=== PATIENT | female | born 1940 | race Caucasian/White ===

== ENCOUNTER 2023-01-27 02:13 | Inpatient (IN) ==
[2023-01-27] MEDS ORDERED: ACETAMINOPHEN 1,000 MG/100 ML VIAL IV STA (02:36)
[2023-01-27] MEDS ORDERED: SODIUM CHLORIDE 0.9% 1000ML 1,000 ML IV SCH ×2 (02:45→15:03)
[2023-01-27 02:51] LABS: Basophils # (auto) 0.06 K/uL (0-0.2); Basophils % (auto) 0.9 %; Eosinophils # (auto) 0.15 K/uL (0-0.50); Eosinophils % (auto) 2.2 %; Hematocrit (blood only) 35.1 % (37.0-47.0); Hemoglobin 11.8 g/dl (12.0-16.0); Immature Granulocytes # (auto) 0.03 K/uL (0.01-0.20); Immature Granulocytes % (auto) 0.4 %; Lymphocytes # (auto) 2.45 K/uL (1.2-3.4); Lymphocytes % (auto) 36.4 %; Mean Corpuscular Hemoglobin 28.9 pg (25.0-34.0); Mean Corpuscular Hgb Conc 33.6 g/dL (32.0-36.0); Mean Platelet Volume 10.3 fL (9.4-12.4); Monocytes # (auto) 0.62 K/uL (0.11-0.59); Monocytes % (auto) 9.2 %; Neutrophils # (auto) 3.43 K/uL (1.40-6.50); Neutrophils % (auto) 50.9 %; Platelet Count 259 K/uL (130-400); RDW Coefficient of Variation 13.8 % (11.5-14.5); RDW Standard Deviation 43.6 fL (36.4-46.3); Red Blood Count 4.08 M/uL (4.20-5.40); White Blood Count 6.74 K/ul (4.8-10.8)
[2023-01-27 03:05] LABS: Alanine Aminotransferase 9 U/L (7-52); Albumin Globulin Ratio 1.5 (0.9-2); Albumin Level 3.7 gm/dl (3.4-5.0); Alkaline Phosphatase 81 U/L (34-104); Anion Gap 6 (3-11); Aspartate Aminotransferase 12 U/L (13-39); BUN Creatinine Ratio 29.2 (10-20); Bilirubin,Total 0.4 mg/dl (0.2-1.0); Blood Urea Nitrogen 19 mg/dl (6-23); Calcium 8.8 mg/dl (8.6-10.3); Carbon Dioxide 30 mmol/L (21-32); Chloride 104 mmol/L (98-107); Est GFR (African American) 94.5 ml/min; Est GFR (Non-African American) 81.5 ml/min; Globulin 2.4 gm/dl (2.5-4.0); Glucose 140 mg/dl (70-99(Fasting)); Potassium 3.4 mmol/L (3.5-5.1); Sodium 140 mmol/L (136-145); Total Protein 6.1 gm/dl (6.0-8.3)
[2023-01-27 03:32] LABS: Partial Thromboplastin Ratio 0.9; Partial Thromboplastin Time 24.4 Seconds (21.0-31.0); Prothrombin Time 11.4 Seconds (9.0-12.0)
[2023-01-27] MEDS: fentaNYL citrate PF 100 MCG/2 ML VIAL IV PRN ×2 (04:06→05:23)
--- NOTE | 2023-01-27 04:14 | History & Physical Report ---
Date of Service January 27, 2023 Assessment & Plan (1) Closed left hip fracture: (2) Prediabetes: (3) Hypercholesterolemia: (4) Cerebrovascular disease: (5) Traumatic brain injury: (6) Dementia: (7) Benign essential hypertension: Plan Closed left hip fracture- Geriatric hip fracture protocol order set Acetaminophen 1 g IV every 8 hours as needed mild pain or fever Dilaudid 0.25 mg IV every 3 hours as needed for moderate pain Dilaudid 0.5 mg IV every 3 hours as needed for severe pain Zofran 4 mg IV every 6 hours as needed Pantoprazole 40 mg IV daily Consult orthopedic surgery Hypertension- Hold benazepril and amlodipine while n.p.o. Hydralazine 10 mg IV every 4 hours. Systolic blood pressure greater than 160 Hold aspirin History of Present Illness Chief Complaint: The patient is referred to the emergency department from [facility] due to the development of acute left hip pain after a fall earlier this evening. Primary Care Provider: [facility] The patient is an 82-year-old female with a past medical history including prediabetes, hypercholesterolemia, lacunar infarct, noncompliance, dysphagia, traumatic brain injury, dementia, benign essential hypertension. She presents to the emergency department with complaint of left hip pain after a fall at her residence at [facility] Allergies Allergy/AdvReac Type Severity Reaction Status Date / Time No Known Allergies Allergy Verified 03/12/22 09:42 Home Medications Medication Instructions Recorded Confirmed Type aspirin 81 mg tablet,delayed 81 mg PO DAILY 01/27/21 03/12/22 History release benazepril 20 mg tablet 30 mg PO DAILY #45 tabs 03/30/22 Rx amlodipine 10 mg tablet See Rx Instructions .Route 04/26/22 Rx .COMPLEX #90 tabs Past Med/Surg History Medical History (Updated 01/27/23 @ 05:33 by Micah Matos MD) Bowel obstruction Cerebrovascular disease Surgical History History of dental surgery Family History Sister Cancer Heart disease Brother Myocardial infarction Father Hypothyroidism Heart disease Lung cancer Mother Sudden , Onset Age: 82 Coronary arteriosclerosis Heart disease Hypertension Other Coronary heart disease Social History Smoking Status: Unknown if ever smoked Second Hand Exposure: No; Do You Dip or Chew Tobacco: No; Hx Alcohol Use: No Hx Substance Use: No Preferred Language: Yoruba Communication Ability: Effective 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 marital status: / Current Living Situation: Alone Feels Safe at Home: Yes Childhood Exposure to Second-Hand Smoke: No Seatbelt Use: always Sunscreen Use: Yes Review of Systems Review of Systems: The patient denies chest pain, palpitations, shortness of breath, dyspnea on exertion, cough, lower extremity swelling, sore throat, fevers, chills, sweats, nausea, vomiting, diarrhea , constipation, abdominal pain, pelvic pain, blood in urine or stool, lightheadedness, dizziness, headache, memory loss, loss of consciousness, rash, abnormal bruising or bleeding, focal or generalized weakness, numbness or tingling in arms right leg, generalized arthralgias or myalgias, back or neck pain, or night sweats. The review of systems is otherwise negative other than for that already noted above, and at least 10 systems have been reviewed. Physical Exam Physical Exam: The patient is awake, confused, well developed and well nourished, normocephalic and atraumatic, lying in bed and in mild distress. HEENT--PERRL, EOMI, mucous membranes and oropharynx dry. Neck--supple. No JVD. No bruits. Thyroid normal, trachea midline, no adenopathy. Heart--normal S1 and S2. No murmurs, rubs or gallops. Lungs--clear bilaterally, no respiratory distress, no accessory muscle use. Abdomen--normal bowel sounds and soft. Nontender. Nondistended, no hernias or masses, no organomegaly. Extremities--no cyanosis or clubbing. No edema. Dermatologic--normal skin turgor, normal color, no abnormal lymph nodes, no rash. Neurologic--cranial nerves II through XII grossly intact. Rheumatologic--limited exam due to left hip pain and dementia Psychiatric--normal affect. Results & Data Results & Data Vital Signs (Past 12 Hours) Vital Signs Temp Pulse Pulse Resp BP BP Pulse Ox 01/27/23 03:49 65 18 171/81 H 96 01/27/23 03:00 36.5 C 60 16 164/83 H 97 01/27/23 02:34 58 L O2 Del Method 01/27/23 03:49 Room Air 01/27/23 03:00 Room Air 01/27/23 02:34 Laboratory Results Laboratory Results WBC 6.74 K/ul (4.8-10.8) 01/27/23 02:29 RBC 4.08 M/uL (4.20-5.40) L 01/27/23 02:29 Hgb 11.8 g/dl (12.0-16.0) L 01/27/23 02:29 Hct 35.1 % (37.0-47.0) L 01/27/23 02:29 MCV 86.0 fL (80.0-100.0) 01/27/23 02:29 MCH 28.9 pg (25.0-34.0) 01/27/23 02:29 MCHC 33.6 g/dL (32.0-36.0) 01/27/23 02:29 RDW Std Deviation 43.6 fL (36.4-46.3) 01/27/23 02:29 RDW Coeff of Rich 13.8 % (11.5-14.5) 01/27/23 02:29 Plt Count 259 K/uL (130-400) 01/27/23 02:29 MPV 10.3 fL (9.4-12.4) 01/27/23 02:29 Immature Gran % (Auto) 0.4 % 01/27/23 02:29 Neut % (Auto) 50.9 % 01/27/23 02:29 Lymph % (Auto) 36.4 % 01/27/23 02:29 Pickett % (Auto) 9.2 % 01/27/23 02:29 Eos % (Auto) 2.2 % 01/27/23 02:29 Baso % (Auto) 0.9 % 01/27/23 02:29 Neut # (Auto) 3.43 K/uL (1.40-6.50) 01/27/23 02:29 Lymph # (Auto) 2.45 K/uL (1.2-3.4) 01/27/23 02:29 Pickett # (Auto) 0.62 K/uL (0.11-0.59) H 01/27/23 02:29 Eos # (Auto) 0.15 K/uL (0-0.50) 01/27/23 02:29 Baso # (Auto) 0.06 K/uL (0-0.2) 01/27/23 02:29 Immature Gran # (Auto) 0.03 K/uL (0.01-0.20) 01/27/23 02:29 PT 11.4 Seconds (9.0-12.0) 01/27/23 02:29 INR 1.0 (0.9-1.1) 01/27/23 02:29 APTT 24.4 Seconds (21.0-31.0) 01/27/23 02:29 PTT Ratio 0.9 01/27/23 02:29 Sodium 140 mmol/L (136-145) 01/27/23 02:29 Potassium 3.4 mmol/L (3.5-5.1) L 01/27/23 02:29 Chloride 104 mmol/L (98-107) 01/27/23 02:29 Carbon Dioxide 30 mmol/L (21-32) 01/27/23 02:29 Anion Gap 6 (3-11) 01/27/23 02:29 BUN 19 mg/dl (6-23) 01/27/23 02:29 Creatinine 0.65 mg/dl (0.6-1.2) 01/27/23 02:29 Est Cr Clr Drug Dosing Not Reportable 01/27/23 02:29 Est GFR ( Amer) 94.5 ml/min 01/27/23 02:29 Est GFR (Non-Af Amer) 81.5 ml/min 01/27/23 02:29 BUN/Creatinine Ratio 29.2 (10-20) H 01/27/23 02:29 Glucose 140 mg/dl (70-99(Fasting)) H 01/27/23 02:29 Calcium 8.8 mg/dl (8.6-10.3) 01/27/23 02:29 Total Bilirubin 0.4 mg/dl (0.2-1.0) 01/27/23 02:29 AST 12 U/L (13-39) L 01/27/23 02:29 ALT 9 U/L (7-52) 01/27/23 02:29 Alkaline Phosphatase 81 U/L (34-104) 01/27/23 02:29 Total Protein 6.1 gm/dl (6.0-8.3) 01/27/23 02: Albumin 3.7 gm/dl (3.4-5.0) 01/27/23 02:29 Globulin 2.4 gm/dl (2.5-4.0) L 01/27/23 02:29 Albumin/Globulin Ratio 1.5 (0.9-2) 01/27/23 02:29 Urine Color Yellow 01/27/23 04:30 Urine Appearance Clear (Clear) 01/27/23 04:30 Urine pH 7.5 (4.5-7.5) 01/27/23 04:30 Ur Specific [place] 1.013 (1.000-1.030) 01/27/23 04:30 Urine Protein Negative (Negative) 01/27/23 04:30 Urine Glucose (UA) Negative (Negative) 01/27/23 04:30 Urine Ketones Negative (Negative) 01/27/23 04:30 Urine Blood Negative (Negative) 01/27/23 04:30 Urine Nitrite Positive (Negative) A 01/27/23 04:30 Urine Bilirubin Negative (Negative) 01/27/23 04:30 Urine Urobilinogen Negative (Negative) 01/27/23 04:30 Ur Leukocyte Esterase Trace (Negative) H 01/27/23 04:30 Urine WBC (Auto) 1-5 /hpf (0-5) 01/27/23 04:30 Urine RBC (Auto) 0-4 /hpf (0-4) 01/27/23 04:30 U Hyaline Cast (Auto) 0 /lpf (0-5) 01/27/23 04:30 U Epithel Cells (Auto) 10-20 /lpf (0-5) H 01/27/23 04:30 Urine Bacteria (Auto) 3+ (Negative) H 01/27/23 04:30 SARS-CoV-2, RNA, NAAT NEGATIVE (NEGATIVE) 01/27/23 04:[address] 01/27/23 03:44 Exam(s): CT HEAD Without Contrast EXAM: CT Head Without Intravenous Contrast CLINICAL HISTORY: Reason for exam: trauma. TECHNIQUE: Axial computed tomography images of the head/brain without intravenous contrast. CTDI is 36.81 mGy and DLP is 614.27 mGy-cm. Automated exposure control was utilized for the study. A dose lowering technique was utilized adhering to the principles of ALARA. COMPARISON: No relevant prior studies available. FINDINGS: Brain: Chronic periventricular ischemic demyelination changes seen due to small vessel disease. No hemorrhage. Ventricles: Unremarkable. No ventriculomegaly. Bones/joints: Unremarkable. No acute fracture. Soft tissues: Unremarkable. Sinuses: Mucosal thickening seen in the left maxillary sinus. Mastoid air cells: Unremarkable as visualized. No mastoid effusion. IMPRESSION: No acute intracranial abnormality Electronically signed by: Rohan Veliz MD 01/27/23 05:27 AM Code Status & VTE Plan Code Status Full code VTE Prophylaxis Plan VTE Prophylaxis will be ordered: Yes PG Care Time/CCT Total # of Minutes Spent Total Time Spent with Patient: Total time spent is greater than 50% in coordination of care (as documented) at patient's floor/unit and/or counseling patient: Coding Level of Care Code 32527 INT INP/OBS CARE 3/75MIN Diagnoses Closed left hip fracture S72.002A Prediabetes R73.03 Hypercholesterolemia E78.00 Cerebrovascular disease I67.9 Traumatic brain injury S06.9X9A Dementia F03.90 Benign essential hypertension I10
[2023-01-27 04:48] LABS: Appearance Urine Clear (Clear); Bacteria Urine Automated 3+ (Negative); Bilirubin Urine Negative (Negative); Blood Urine Negative (Negative); Cast Urine Automated 0 /lpf (0-5); Color Urine Yellow; Glucose Urine UA Negative (Negative); Ketones Urine Negative (Negative); Leukocyte Esterase Urine Trace (Negative); Nitrite Urine Positive (Negative); Protein Urine Negative (Negative); RBC Urine Automated 0-4 /hpf (0-4); Specific Gravity Urine 1.013 (1.000-1.030); Urobilinogen Urine Negative (Negative); pH Urine 7.5 (4.5-7.5)
--- NOTE | 2023-01-27 05:28 | CT Scan Report ---
Exam(s): CT HEAD Without Contrast EXAM: CT Head Without Intravenous Contrast CLINICAL HISTORY: Reason for exam: trauma. TECHNIQUE: Axial computed tomography images of the head/brain without intravenous contrast. CTDI is 36.81 mGy and DLP is 614.27 mGy-cm. Automated exposure control was utilized for the study. A dose lowering technique was utilized adhering to the principles of ALARA. COMPARISON: No relevant prior studies available. FINDINGS: Brain: Chronic periventricular ischemic demyelination changes seen due to small vessel disease. No hemorrhage. Ventricles: Unremarkable. No ventriculomegaly. Bones/joints: Unremarkable. No acute fracture. Soft tissues: Unremarkable. Sinuses: Mucosal thickening seen in the left maxillary sinus. Mastoid air cells: Unremarkable as visualized. No mastoid effusion. IMPRESSION: No acute intracranial abnormality Electronically signed by: Rohan Veliz MD 01/27/23 05:27 AM
[2023-01-27] MEDS ORDERED: hydrALAZINE HCL 20 MG/ML VIAL IV PRN (05:35)
--- NOTE | 2023-01-27 05:38 | CT Scan Report ---
Exam(s): CT C SPINE EXAM: CT Cervical Spine Without Intravenous Contrast CLINICAL HISTORY: Reason for exam: trauma. TECHNIQUE: Axial computed tomography images of the cervical spine without intravenous contrast. CTDI is 19.12 mGy and DLP is 360.92 mGy-cm. Automated exposure control was utilized for the study. A dose lowering technique was utilized adhering to the principles of ALARA. COMPARISON: No relevant prior studies available. FINDINGS: Vertebrae: Unremarkable. No acute fracture. Discs/spinal canal/neural foramina: Mild degenerative disc disease changes seen in the cervical spine. No spinal canal stenosis. Soft tissues: There is 2.8 cm heterogeneous density nodule seen in the right lobe of the thyroid gland. This can be further assessed on ultrasound study Lung apices: Mild interlobular septal prominence seen in bilateral lungs which can be associated with interstitial edema. Other findings: The bones are osteopenic. IMPRESSION: No acute fracture or dislocation Electronically signed by: Rohan Veliz MD 01/27/23 05:37 AM
[2023-01-27] MEDS ORDERED: cefTRIAXone SODIUM 1,000 MG in DEXTROSE 5% AD-VAN 50 ML IV STA (06:11)
--- NOTE | 2023-01-27 06:11 | Emergency Department Note ---
Impression & Plan Acute pain of left hip, Dementia, Closed intertrochanteric fracture of left hip, Fall ED Provider Note ED Provider Note NAME: DUGLAS SCHULTZ AGE:82 SEX: Female : 1940 ARRIVES VIA: EMS INFORMANT: EMS ED PROVIDER(s): Julia Parson DO CHIEF COMPLAINT: Fall, left hip pain HPI: This is an 82-year-old female who presents from a local care home facility who presents emergency department following a fall. Fall was unwitnessed by staff, and she was found complaining of left hip pain unable to get up. Staff noticed the left lower extremity seemed externally rotated more concerning for fracture. On arrival patient has no other complaints of pain, but cannot provide additional history due to her dementia. PAST MEDICAL HISTORY:See Below PAST SURGICAL HISTORY:See Below FAMILY HISTORY:See Below SOCIAL HISTORY:See Below HOME MEDICATIONS:See Below ALLERGIES:See Below VITALS:See Below PHYSICAL EXAMINATION: GENERAL: alert, well appearing, well nourished, no distress, non-toxic HEAD: nc/at, no evidence of facial trauma EYE EXAM: normal conjunctiva, PERRL and EOM's grossly intact OROPHARYNX: no exudate, no erythema, lips, buccal mucosa, and tongue normal and mucous membranes are moist NECK: supple, no nuchal rigidity, no adenopathy, non-tender, FROM LUNGS: Clear to auscultation. Normal chest wall mechanics, no w/r/r HEART: no murmurs, S1 normal and S2 normal ABDOMEN: abdomen soft, non-tender, normo-active bowel sounds, no masses, no rebound or guarding. BACK: Back is symmetrical on inspection and there is no deformity, no midline tenderness, no CVA tenderness. SKIN: no rashes, petechiae, orbruising UPPER EXTREMITIES: upper extremities are grossly normal. FROM, nml pulses b/l. LOWER EXTREMITIES: No pitting edema. nml pulses b/l, LLE shortnened and externally rotated, sensation intact bilaterally, no joint effusions, patient unable to move left lower extremity due to pain, mild pain with palpation and deformity noted to left hip NEURO EXAM: Normal sensorium, cranial nerves II-XII grossly intact, normal speech, no facial droop,nogross weakness of arms, no gross weakness of legs. Gross sensation intact. No ataxia. Vital Signs: reviewed and remarkable Differential Diagnosis: Hip fracture, pelvic fracture, closed head injury, concussion, contusion, hematoma, acute spinal cord injury, musculoskeletal strain, as well as others were considered MEDICAL DECISION MAKING: This is an elderly and demented female who presents via EMS from a care home following an unwitnessed fall out of bed with complaints of left hip pain. Patient was afebrile and vital signs stable. Labs drawn and sent, IV established, EKG performed interpreted by me at bedside, patient placed on telemetry. Following examination and concern for acute left hip fracture, x-ray came and performed both left hip/pelvis x-ray and chest x-ray at bedside this was interpreted by me. Patient's labs are reassuring, patient given IV Tylenol and IV fentanyl for pain and was started on gentle IV fluid hydration. U ltimately urine was collected upon placement of a catheter and was suggestive of infection so IV Rocephin was added additionally. Case discussed with hospitalist for additional evaluation and management. Given patient's dementia she was sent for CT of the head and C-spine as a precaution although there is no evidence of trauma on exam. CT imaging reassuring. Consultation(s): 0345: Discussed with Dr. Matos. ER Treatment Provided: See below Diagnostics Interpreted By Me: -ECG: Normal sinus at 71, first-degree AV block, normal QRS and QTc, normal axis, no acute ST/T wave change -Cardiac Monitoring: An order was placed for continuous cardiac monitoring. The monitor shows a rate of 68 with normal sinus rhythm. -Laboratory studies: As stated above and show below. -Imaging studies: X-ray Chest: A single view study of the chest was reviewed and was negative for cardiomegaly, focal infiltrate, effusion, pulmonary edema, or wide mediastinum. xr left hip/pelvis: Left intertrochanteric hip fracture Triage Nursing Note Reviewed Prior/Outside Records Reviewed -care home records reviewed Past Med/Surg History Medical History Bowel obstruction Cerebrovascular disease Surgical History History of dental surgery Family History Sister Cancer Heart disease Brother Myocardial infarction Father Hypothyroidism Heart disease Lung cancer Mother Sudden , Onset Age: 82 sudden cardiac Coronary arteriosclerosis Heart disease Hypertension Other Coronary heart disease Social History Smoking Status: Unknown if ever smoked Second Hand Exposure: No; Do You Dip or Chew Tobacco: No; Hx Alcohol Use: No Hx Substance Use: No Preferred Language: Tajik Communication Ability: Impaired Communication Ability Comment: confused,dementia Retail Merchandising Coordinator Required: No Beliefs That Will Affect Care: None marital status: / Current Living Situation: [facility] Feels Safe at Home: Yes Childhood Exposure to Second-Hand Smoke: No Seatbelt Use: always Sunscreen Use: Yes Assistive Devices: Walker and Wheelchair Allergies Allergies Allergy/AdvReac Type Severity Reaction Status Date / Time No Known Allergies Allergy Verified 03/12/22 09:42 Home Meds Home Medications Medication Instructions Recorded Confirmed aspirin 81 mg tablet,delayed 81 mg PO DAILY 01/27/21 01/27/23 release atorvastatin 40 mg tablet 40 mg PO DAILY 01/27/23 01/27/23 citalopram 10 mg tablet 10 mg PO DAILY 01/27/23 01/27/23 docusate sodium 100 mg capsule 100 mg PO TID 01/27/23 01/27/23 (Colace) lorazepam 0.5 mg tablet 0.5 mg PO BID PRN Anxiety 01/27/23 01/27/23 melatonin 3 mg tablet 3 mg PO HS PRN Sleep 01/27/23 01/27/23 Previous Rx's Medication Instructions Recorded benazepril 20 mg tablet 30 mg PO DAILY #45 tabs 03/30/22 amlodipine 10 mg tablet See Rx Instructions .Route 04/26/22 .COMPLEX #90 tabs Results & Data (ED) Vital Signs Vital Signs - 24 hr 01/27/23 03:49 Pulse Rate [Apical] 65 Respiratory Rate 18 Blood Pressure [Right Arm] 171/81 H Blood Pressure Mean [Right Arm] 111 Pulse Oximetry 96 Oxygen Delivery Method Room Air Laboratory Data 01/27/23 02:29 01/27/23 02:29 Lab Results 01/27/23 01/27/23 01/27/23 Range/Units 02:29 02:29 02:29 WBC 6.74 (4.8-10.8) K/ul RBC 4.08 L (4.20-5.40) M/uL Hgb 11.8 L (12.0-16.0) g/dl Hct 35.1 L (37.0-47.0) % MCV 86.0 (80.0-100.0) fL MCH 28.9 (25.0-34.0) pg MCHC 33.6 (32.0-36.0) g/dL RDW Std Deviation 43.6 (36.4-46.3) fL RDW Coeff of Rich 13.8 (11.5-14.5) % Plt Count 259 (130-400) K/uL MPV 10.3 (9.4-12.4) fL Immature Gran % (Auto) 0.4 % Neut % (Auto) 50.9 % Lymph % (Auto) 36.4 % Buchanan % (Auto) 9.2 % Eos % (Auto) 2.2 % Baso % (Auto) 0.9 % Neut # (Auto) 3.43 (1.40-6.50) K/uL Lymph # (Auto) 2.45 (1.2-3.4) K/uL Buchanan # (Auto) 0.62 H (0.11-0.59) K/uL Eos # (Auto) 0.15 (0-0.50) K/uL Baso # (Auto) 0.06 (0-0.2) K/uL Immature Gran # (Auto) 0.03 (0.01-0.20) K/uL PT 11.4 (9.0-12.0) Seconds INR 1.0 (0.9-1.1) APTT 24.4 (21.0-31.0) Seconds PTT Ratio 0.9 Sodium 140 (136-145) mmol/L Potassium 3.4 L (3.5-5.1) mmol/L Chloride 104 (98-107) mmol/L Carbon Dioxide 30 (21-32) mmol/L Anion Gap 6 (3-11) BUN 19 (6-23) mg/dl Creatinine 0.65 (0.6-1.2) mg/dl Est Cr Clr Drug Dosing Not Reportable Est GFR ( Amer) 94.5 ml/min Est GFR (Non-Af Amer) 81.5 ml/min BUN/Creatinine Ratio 29.2 H (10-20) Glucose 140 H (70-99(Fasting)) mg/dl Calcium 8.8 (8.6-10.3) mg/dl Total Bilirubin 0.4 (0.2-1.0) mg/dl AST 12 L (13-39) U/L ALT 9 (7-52) U/L Alkaline Phosphatase 81 (34-104) U/L Total Protein 6.1 (6.0-8.3) gm/dl Albumin 3.7 (3.4-5.0) gm/dl Globulin 2.4 L (2.5-4.0) gm/dl Albumin/Globulin Ratio 1.5 (0.9-2) SARS-CoV-2, RNA, NAAT (NEGATIVE) 01/27/23 Range/Units 04:00 WBC (4.8-10.8) K/ul RBC (4.20-5.40) M/uL Hgb (12.0-16.0) g/dl Hct (37.0-47.0) % MCV (80.0-100.0) fL MCH (25.0-34.0) pg MCHC (32.0-36.0) g/dL RDW Std Deviation (36.4-46.3) fL RDW Coeff of Rich (11.5-14.5) % Plt Count (130-400) K/uL MPV (9.4-12.4) fL Immature Gran % (Auto) % Neut % (Auto) % Lymph % (Auto) % Buchanan % (Auto) % Eos % (Auto) % Baso % (Auto) % Neut # (Auto) (1.40-6.50) K/uL Lymph # (Auto) (1.2-3.4) K/uL Buchanan # (Auto) (0.11-0.59) K/uL Eos # (Auto) (0-0.50) K/uL Baso # (Auto) (0-0.2) K/uL Immature Gran # (Auto) (0.01-0.20) K/uL PT (9.0-12.0) Seconds INR (0.9-1.1) APTT (21.0-31.0) Seconds PTT Ratio Sodium (136-145) mmol/L Potassium (3.5-5.1) mmol/L Chloride (98-107) mmol/L Carbon Dioxide (21-32) mmol/L Anion Gap (3-11) BUN (6-23) mg/dl Creatinine (0.6-1.2) mg/dl Est Cr Clr Drug Dosing Est GFR ( Amer) ml/min Est GFR (Non-Af Amer) ml/min BUN/Creatinine Ratio (10-20) Glucose (70-99(Fasting)) mg/dl Calcium (8.6-10.3) mg/dl Total Bilirubin (0.2-1.0) mg/dl AST (13-39) U/L ALT (7-52) U/L Alkaline Phosphatase (34-104) U/L Total Protein (6.0-8.3) gm/dl Albumin (3.4-5.0) gm/dl Globulin (2.5-4.0) gm/dl Albumin/Globulin Ratio (0.9-2) SARS-CoV-2, RNA, NAAT NEGATIVE (NEGATIVE) Administered Medications Aspirin (Aspirin 81 Mg Ectab) 81 mg PO BID [facility] Stop: 02/26/23 20:59 Last Admin: 01/27/23 20:38 Dose: 81 mg Documented By: NASIM Docusate Sodium (Docusate Sodium 100 Mg Cap) 100 mg PO TID [facility] Stop: 02/26/23 20:59 Last Admin: 01/27/23 20:39 Dose: 100 mg Documented By: NASIM Hydralazine HCl (Hydralazine Hcl 20 Mg/Ml Vial) 10 mg IV Q4H PRN PRN Reason: Blood Pressure - High Stop: 02/26/23 05:34 Last Admin: 01/27/23 17:06 Dose: 10 mg Documented By: DORIS Hydromorphone HCl (Hydromorphone Inj 0.5 Mg/0.5 Ml Syr) 0.5 mg IV Q3H PRN PRN Reason: Pain (6,7,8,9,10) Stop: 02/10/23 06:28 Last Admin: 01/28/23 00:11 Dose: 0.5 mg Documented By: Admin: 01/27/23 21:10 Dose: 0.5 mg Documented By: Admin: 01/27/23 18:05 Dose: 0.5 mg Documented By: DORIS Potassium Chloride/Sodium Chloride (Normal Saline W/20 Meq Kcl) 20 meq in 1,000 mls @ 60 mls/hr IV .[id number] JEWELS; Protocol Stop: 02/26/23 06:28 Last Infusion: 01/28/23 00:54 Dose: 60 mls/hr Documented By: Admin: 01/27/23 06:45 Dose: 60 mls/hr Documented By: YAMILEX Cefazolin Sodium (Ancef 1000mg) 1,000 mg in 7.5 mls @ 2.5 mls/min IV Q8H JEWELS; Protocol Stop: 01/28/23 05:02 Last Admin: 01/27/23 21:10 Dose: 2.5 mls/min Documented By: NASIM Melatonin (Melatonin 3 Mg Tab) 3 mg PO HS PRN PRN Reason: Sleep Stop: 02/26/23 15:02 Last Admin: 01/27/23 20:45 Dose: 3 mg Documented By: NASIM Senna/Docusate Sodium (Docusate Sodium/Senna 50/8.6mg Tab) 2 tab PO HS JEWELS Stop: 02/26/23 20:59 Last Admin: 01/27/23 20:38 Dose: 2 tab Documented By: NASIM Discontinued Medications Bupivacaine HCl/Epinephrine Bitart (Bupivacaine/Epinephrine 0.5% Mpf 1:200,000 30 Ml Vial) Confirm Administered Dose 30 ml .ROUTE .STK-MED ONE Stop: 01/27/23 12:25 Last Admin: 01/27/23 13:57 Dose: 30 ml Documented By: BAKARI Fentanyl Citrate (Fentanyl Citrate Pf 100 Mcg/2 Ml Vial) 50 mcg IV Q15M PRN PRN Reason: Pain Stop: 02/10/23 03:43 Last Admin: 01/27/23 05:23 Dose: 50 mcg Documented By: Admin: 01/27/23 04:06 Dose: 50 mcg Documented By: JEANE Sodium Chloride (Nss 1000ml) 1,000 mls @ 150 mls/hr IV .[id number] JEWELS Stop: 01/27/23 09:24 Last Infusion: 01/27/23 06:45 Dose: 0 mls/hr Documented By: Admin: 01/27/23 03:17 Dose: 150 mls/hr Documented By: JEANE Acetaminophen (Ofirmev) 1,000 mg in 100 mls @ 400 mls/hr IV NOW STA Stop: 01/27/23 02:50 Last Infusion: 01/27/23 03:40 Dose: 0 mls/hr Documented By: Admin: 01/27/23 03:18 Dose: 400 mls/hr Documented By: JEANE Ceftriaxone Sodium 1,000 mg/ (Dextrose) 50 mls @ 100 mls/hr IV NOW STA Stop: 01/27/23 06:40 Last Infusion: 01/27/23 09:38 Dose: 0 mls/hr Documented By: Admin: 01/27/23 08:52 Dose: 100 mls/hr Documented By: DORIS Cefazolin Sodium (Ancef 2000mg) 2,000 mg in 15 mls @ 3.75 mls/min IV ONCE ONE; Protocol Stop: 01/27/23 13:38 Last Admin: 01/27/23 13:21 Dose: 3.75 mls/min Documented By: KAILASH Sodium Chloride (Nss 1000ml) 1,000 mls @ 80 mls/hr IV .[id number] JEWELS Stop: 01/28/23 16:02 Last Admin: 01/27/23 15:11 Dose: Not Given Documented By: DORIS Imaging Data Radiologist's Impression: Cervical Spine CT 01/27/23 03:44 Exam(s): CT C SPINE EXAM: CT Cervical Spine Without Intravenous Contrast CLINICAL HISTORY: Reason for exam: trauma. TECHNIQUE: Axial computed tomography images of the cervical spine without intravenous contrast. CTDI is 19.12 mGy and DLP is 360.92 mGy-cm. Automated exposure control was utilized for the study. A dose lowering technique was utilized adhering to the principles of ALARA. COMPARISON: No relevant prior studies available. FINDINGS: Vertebrae: Unremarkable. No acute fracture. Discs/spinal canal/neural foramina: Mild degenerative disc disease changes seen in the cervical spine. No spinal canal stenosis. Soft tissues: There is 2.8 cm heterogeneous density nodule seen in the right lobe of the thyroid gland. This can be further assessed on ultrasound study Lung apices: Mild interlobular septal prominence seen in bilateral lungs which can be associated with interstitial edema. Other findings: The bones are osteopenic. IMPRESSION: No acute fracture or dislocation Electronically signed by: Rohan Veliz MD 01/27/23 05:[address] 01/27/23 03:44 Exam(s): CT HEAD Without Contrast EXAM: CT Head Without Intravenous Contrast CLINICAL HISTORY: Reason for exam: trauma. TECHNIQUE: Axial computed tomography images of the head/brain without intravenous contrast. CTDI is 36.81 mGy and DLP is 614.27 mGy-cm. Automated exposure control was utilized for the study. A dose lowering technique was utilized adhering to the principles of ALARA. COMPARISON: No relevant prior studies available. FINDINGS: Brain: Chronic periventricular ischemic demyelination changes seen due to small vessel disease. No hemorrhage. Ventricles: Unremarkable. No ventriculomegaly. Bones/joints: Unremarkable. No acute fracture. Soft tissues: Unremarkable. Sinuses: Mucosal thickening seen in the left maxillary sinus. Mastoid air cells: Unremarkable as visualized. No mastoid effusion. IMPRESSION: No acute intracranial abnormality Electronically signed by: Rohan Veliz MD 01/27/23 05:27 AM Discharge Plan Visit Data Chief Complaint: Fall Stated Complaint: FALL W/ LT HIP PAIN ED Provider: Julia Parson Discharge Problem: Acute pain of left hip, Dementia, Closed intertrochanteric fracture of left hip, Fall Patient Disposition: Admitted As Inpatient Discharge Instructions Interventions: ED Discharge Assessment Last Done: 01/27/23 06:09
[2023-01-27] MEDS ORDERED: ONDANSETRON INJ 2 MG/ML 2 ML VIAL IV PRN ×2 (06:29→12:23)
[2023-01-27] MEDS ORDERED: HYDROmorphone INJ 0.5 MG/0.5 ML SYR IV PRN (06:29)
[2023-01-27] MEDS ORDERED: ACETAMINOPHEN 1000 MG/100 ML IV IV PRN (06:29)
[2023-01-27] MEDS ORDERED: MAGNESIUM HYDROXIDE SUSP 30 ML UDC PO PRN (06:29)
[2023-01-27] MEDS ORDERED: NALOXONE HCL 0.4 MG/1 ML VIAL/CARP IV PRN (06:29)
[2023-01-27] MEDS ORDERED: bisacodyL 10 MG SUPP PR PRN (06:29)
[2023-01-27] MEDS ORDERED: TRANEXAMIC ACID / 0.7% NACL 1,000 MG/100 ML BAG IV SCH ×2 (06:29→06:30)
[2023-01-27] MEDS: NSS + 20MEQ KCL 20 MEQ/1,000 ML BAG IV SCH (06:45)
--- NOTE | 2023-01-27 07:52 | XRay Report ---
XR hip LT 2V w pelvis CLINICAL HISTORY: fall, left hip pain COMPARISON STUDY: None. FINDINGS: Comminuted and displaced intertrochanteric fracture within the proximal left femur. No frac ture or dislocation within the pelvis or right hip. IMPRESSION: Left femoral intertrochanteric fracture. No dislocation. ACT 112: Negative or not required by law. Electronically signed by: Musa Kwon M.D. 01/27/2023 7:50 AM
--- NOTE | 2023-01-27 07:53 | XRay Report ---
XR chest 1V portable HISTORY: Fall. Hip fx. COMPARISON: None. FINDINGS: No pneumothorax. No pleural effusions. The cardiac silhouette is mildly enlarged. No eviden ce for pulmonary edema. Mild interstitial thickening which is likely chronic. There are mitral anus c alcifications present. No acute fractures identified. IMPRESSION: Mild cardiomegaly. Otherwise, no acute process within the chest. ACT 112: Negative or not required by law. Electronically signed by: Musa Kwon M.D. 01/27/2023 7:52 AM
--- NOTE | 2023-01-27 08:13 | Anesthesiology Consultation ---
Date of Service January 27, 2023 Assessment & Plan Chart Review Chart Review: entry clerk initiated History Surgery Operation Date: 01/27/23 12:00 Proposed Procedures p Left Intramedullary Musa Femur - Zane Dia MD Height/Weight Height: 5 ft 4 in Weight: 54.6 kg Allergies Allergy/AdvReac Type Severity Reaction Status Date / Time No Known Allergies Allergy Verified 03/12/22 09:42 Medications Home Medications Medication Instructions Recorded Confirmed Last Taken aspirin 81 mg tablet,delayed 81 mg PO DAILY 01/27/21 01/27/23 01/26/23 release benazepril 20 mg tablet 30 mg PO DAILY #45 tabs 03/30/22 Unknown amlodipine 10 mg tablet See Rx Instructions .Route 04/26/22 01/27/23 01/26/23 .COMPLEX #90 tabs atorvastatin 40 mg tablet 40 mg PO DAILY 01/27/23 01/27/23 01/26/23 citalopram 10 mg tablet 10 mg PO DAILY 01/27/23 01/27/23 01/26/23 docusate sodium 100 mg capsule 100 mg PO TID 01/27/23 01/27/23 01/26/23 (Colace) lorazepam 0.5 mg tablet 0.5 mg PO BID PRN Anxiety 01/27/23 01/27/23 Unknown melatonin 3 mg tablet 3 mg PO HS PRN Sleep 01/27/23 01/27/23 Unknown Active Medications Generic Name Dose Route Start Last Admin Trade Name Freq PRN Reason Stop Dose Admin Potassium Chloride/Sodium Chloride 20 meq in 1,000 mls @ 60 mls/hr 01/27/23 07:00 01/27/23 06:45 Normal Saline W/20 Meq Kcl IV 02/26/23 06:28 60 mls/hr .[id number] JEWELS Administration Protocol Past Medical History Medical History Bowel obstruction Cerebrovascular disease Past Family History Family History Sister Cancer Heart disease Brother Myocardial infarction Father Hypothyroidism Heart disease Lung cancer Mother Sudden , Onset Age: 82 sudden cardiac Coronary arteriosclerosis Heart disease Hypertension Other Coronary heart disease Past Surgical History Surgical History History of dental surgery Social History Smoking Status: Unknown if ever smoked Do You Dip or Chew Tobacco: No Hx Alcohol Use: No Hx Substance Use: No substance use type: does not use Physical Exam Vital Signs Last Vital Signs Temp 98.8 F 01/27/23 07:35 Pulse 67 01/27/23 07:35 Resp 18 01/27/23 07:21 BP 176/80 H 01/27/23 07:35 Pulse Ox 96 01/27/23 07:35 O2 Del Method Room Air 01/27/23 07:21 Testing Laboratory Results 01/27/23 02:29 01/27/23 02:29 PT 11.4 Seconds (9.0-12.0) 01/27/23 02: INR 1.0 (0.9-1.1) 01/27/23 02: APTT 24.4 Seconds (21.0-31.0) 01/27/23 02:29 Urine Color Yellow 01/27/23 04:30 Urine Appearance Clear (Clear) 01/27/23 04:30 Urine pH 7.5 (4.5-7.5) 01/27/23 04:30 Ur Specific Rhodell 1.013 (1.000-1.030) 01/27/23 04:30 Urine Protein Negative (Negative) 01/27/23 04:30 Urine Glucose (UA) Negative (Negative) 01/27/23 04:30 Urine Ketones Negative (Negative) 01/27/23 04:30 Urine Nitrite Positive (Negative) A 01/27/23 04:30 Ur Leukocyte Esterase Trace (Negative) H 01/27/23 04:30 Urine WBC (Auto) 1-5 /hpf (0-5) 01/27/23 04:30 Urine RBC (Auto) 0-4 /hpf (0-4) 01/27/23 04:30 U Hyaline Cast (Auto) 0 /lpf (0-5) 01/27/23 04:30 U Epithel Cells (Auto) 10-20 /lpf (0-5) H 01/27/23 04:30 Urine Bacteria (Auto) 3+ (Negative) H 01/27/23 04:30 Electrocardiogram Date: 01/27/23 Poor data quality, interpretation may be adversely affected Sinus rhythm with sinus arrhythmia with 1st degree A-V block, rate 71 bpm Otherwise normal ECG No previous ECGs available Chest X-Ray Date: 01/27/23 FINDINGS: No pneumothorax. No pleural effusions. The cardiac silhouette is mildly enlarged. No evidence for pulmonary edema. Mild interstitial thickening which is likely chronic. There are mitral anus calcifications present. No acute fractures identified. IMPRESSION: Mild cardiomegaly. Otherwise, no acute process within the chest.
--- NOTE | 2023-01-27 08:54 | Orthopedic Consultation ---
Date of Service January 27, 2023 Assessment & Plan (1) Closed intertrochanteric fracture of left hip: -Will need surgery. Plan on IM Nail L femur later today. Consent was obtained via phone from pt's brother. Discussed risks including bleeding, infection, malunion, nonunion, neurovascular injury, hardware complications, anesthesia complications, blood clots, . All questions answered. -Further recommendations to follow after surgery Discussed w/ Dr. Dia. History of Present Illness Reason for Consultation: L hip fracture . Requesting Physician: Micah Matos MD . Attending Physician: Micah Matos MD Pt is an 82 y/o/f who is a resident of [facility] with PMHx of dementia, previous CVA, DLD, HTN, and dysphagia. She suffered a mechanical fall onto her left side last night at her shelter. She had immediate severe left hip pain afterwards and was brought to [facility] ED for evaluation where XR imaging showed an intertrochanteric L hip fracture. We are consulted regarding management of the fracture. Pt unable to provide much history d/t baseline dementia. Allergies Allergy/AdvReac Type Severity Reaction Status Date / Time No Known Allergies Allergy Verified 03/12/22 09:42 Home Medications Medication Instructions Recorded Confirmed Type aspirin 81 mg tablet,delayed 81 mg PO DAILY 01/27/21 01/27/23 History release benazepril 20 mg tablet 30 mg PO DAILY #45 tabs 03/30/22 Rx amlodipine 10 mg tablet See Rx Instructions .Route 04/26/22 01/27/23 Rx .COMPLEX #90 tabs atorvastatin 40 mg tablet 40 mg PO DAILY 01/27/23 01/27/23 History citalopram 10 mg tablet 10 mg PO DAILY 01/27/23 01/27/23 History docusate sodium 100 mg capsule 100 mg PO TID 01/27/23 01/27/23 History (Colace) lorazepam 0.5 mg tablet 0.5 mg PO BID PRN Anxiety 01/27/23 01/27/23 History melatonin 3 mg tablet 3 mg PO HS PRN Sleep 01/27/23 01/27/23 History Past Med/Surg History Medical History Bowel obstruction Cerebrovascular disease Surgical History History of dental surgery Family History Sister Cancer Heart disease Brother Myocardial infarction Father Hypothyroidism Heart disease Lung cancer Mother Sudden , Onset Age: 82 sudden cardiac Coronary arteriosclerosis Heart disease Hypertension Other Coronary heart disease Social History Smoking Status: Unknown if ever smoked Second Hand Exposure: No; Do You Dip or Chew Tobacco: No; Hx Alcohol Use: No Hx Substance Use: No Preferred Language: Somali Communication Ability: Impaired Communication Ability Comment: confused,dementia 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 Physical Exam General: Elderly female resting in bed in NAD. Oriented to self only. LLE: She has tenderness to left lateral hip and groin. Worsening pain w/ passive log roll. Leg is shortened w/o significant rotation. Distally NVI. Results & Data Results & Data Laboratory Results Reviewed . Diagnostic Findings Hip/pelvis XRs showing displaced and comminuted intertrochanteric fracture of left femur. . PG Care Time/CCT Total # of Minutes Spent Total Time Spent with Patient: Total time spent is greater than 50% in coordination of care (as documented) at patient's floor/unit and/or counseling patient: Coding Level of Care Code 03270 IN/OBS CONSULT LVL 5,80M Diagnoses Closed intertrochanteric fracture of left hip S72.142A
[2023-01-27] MEDS ORDERED: fentaNYL citrate PF 100 MCG/2 ML VIAL ONE (12:12)
[2023-01-27] MEDS ORDERED: ATROPINE SULFATE 0.1 MG/ML 10ML SYR IV PRN (12:23)
[2023-01-27] MEDS ORDERED: fentaNYL citrate PF 100 MCG/2 ML VIAL IV PRN (12:23)
[2023-01-27] MEDS ORDERED: ePHEDrine sulfate 50 MG/ML AMP IV PRN (12:23)
[2023-01-27] MEDS ORDERED: BUPIVACAINE/EPINEPHRINE 0.5% MPF 1:200,000 30 ML VIAL ONE (12:24)
[2023-01-27] MEDS ORDERED: ceFAZolin 330 MG/ML 1 GM VIAL ONE (13:21)
[2023-01-27] MEDS ORDERED: ONDANSETRON INJ 2 MG/ML 2 ML VIAL ONE (13:24)
[2023-01-27] MEDS ORDERED: PROPOFOL IV EMULSION 10 MG/ML 20 ML VIAL IV ONE (13:24)
[2023-01-27] MEDS ORDERED: LIDOCAINE 2% MPF LOCAL 5 ML VIAL ONE (13:24)
[2023-01-27] MEDS ORDERED: ceFAZolin 2000MG 2,000 MG/15 ML SYR IV ONE (13:35)
[2023-01-27] MEDS ORDERED: PHENYLEPHRINE 100MCG/ML 5ML SYR ONE (14:00)
[2023-01-27] MEDS ORDERED: ePHEDrine sulfate 50 MG/ML SYR ONE (14:00)
--- NOTE | 2023-01-27 14:20 | Fluoroscopy Report ---
FL femur LT 2V CLINICAL HISTORY: Left troch nail COMPARISON STUDY: Left hip 01/27/2023. FLUOROSCOPY TIME: 1 minute and 12 seconds. FLUOROSCOPY IMAGES: 4 Ka,r: 10.6 mGy FINDINGS: Status post internal fixation of a left femoral intertrochanteric fracture within the intra medullary ken and interlocking femoral neck pin. The hardware appears intact. Alignment appears impro razia. IMPRESSION: Fluoroscopic assistance as above. ACT 112: Negative or not required by law. Electronically signed by: Musa Kwon M.D. 01/27/2023 2:19 PM
--- NOTE | 2023-01-27 14:21 | Operative Report ---
PG Post Operative Report Pre & Post Diagnosis Operation Date: 01/27/23 12:00 Pre-Op Diagnosis: Closed displaced intertrochanteric Fracture of Left Hip Post-Op Diagnosis: Closed displaced intertrochanteric Fracture of Left Hip I identified the patient and participated in the time-out.: Yes Procedure Operation Date: 01/27/23 12:00 Actual Procedures p Left Intramedullary/cephalomedullary Musa Femur(Left) - Zane Dia MD Surgeon Zane Dia MD Workflow Developer Al Heredia PA-C Estimated Blood Loss 50 Findings Consistent with Post-Op Diagnosis Specimens None Anesthesia Type General Complications none Disposition Accompanied Patient To Recovery: No Indications Patient is a 82-year-old 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 She was brought to the emergency room x-rays of the left intertrochanteric hip fracture. Patient is was admitted by the hospitalist service, medically optimized and indicated for surgical fixation. Description of Procedure Operative implants consist of: 1. Synthes left 360 mm x 11 mm long trochanteric nail. 2. Synthes 95 mm helical blade. 3. 42 x 5 mm distal interlocking screw. The patient was taken to the operating, identified, placed on the operating table supine position protectors were properly padded. IV antibiotics tried by anesthesia team. A general anesthetic was implemented. The patient was then placed on the fracture table. The left leg was placed in boot traction and the left leg was placed in a well leg mari. I then applied some longitudinal t raction to the left leg and internally rotated the foot. The we manipulated this under fluoroscopy in order to get appropriate alignment. Once appropriate alignment was set the leg was locked in and the left hip were then scrubbed with a Hibiclens and prepped with ChloraPrep in the normal sterile fashion. A slightly curvilinear incision was made just proximal to the trochanter. Sharp dissection was carried through subcutaneous tissue down to level the IT band and gluteal fascia. IT band gluteal fascia incised longitudinally in line with skin incision. A guidewire was then placed just lateral to the tip of the trochanter and in line with the IM canal both the AP and lateral planes. At this did go right to the fracture site. The guidewire was overreamed with the 16 mm reamer. This guidewire was removed. Ball-tipped guidewire was placed down the canal. I measured for nail length and 360 mm nail was selected. I did place a 12 and half millimeter reamer over the guidewire. A 360 mm x 11 mm left long trochanteric nail was then placed. The guidewire was removed. The lateral aiming arm was attached. A stab incision was made the lateral aiming arm was advanced to the lateral aspect of the femur. A guidewire was placed in the central aspect of the femoral head in both the AP and lateral planes. This was then measured and 95 mm helical blade was selected. The cortical step drill was used to breach the cortex and the triple reamer was then used set at 95. 95 mm helical blade was tapped into position. I did compress this as it did distract the fracture site slightly. The proximal setscrew was then tightened and then backed off a half a turn to allow compression. Some final x-rays were obtained. Attention drawn toward distal interlocking. Using the perfect [place] technique the distal interlocking screw was placed. A stab incision was made. The drill bit was used to drill through the femur and a 42 mm screw was placed. Some final x-rays were obtained. Attention drawn toward closing. All wounds irrigated was closed with normal saline. I did inject locally with 30 cc of half percent Marcaine with epinephrine. Gluteal fascia and IT band were then closed with #1 Vicryl suture running fashion. Subcutaneous tissues about all wounds were then closed with 2-0 Dexon suture in buried interrupted fashion. Skin was closed skin miguel. Leg was then cleaned and dried a sterile dressing was Xeroform, 4 x 4's, ABD pad, foam tape was applied. The patient then taken off the fracture table. She was brought out of general anesthesia and transferred to the recovery room in stable condition. The patient tolerated the procedure well and there were no complications. Douglas Heredia, my physician assistant program director, was present for the entire procedure. His assistance was required for proper patient positioning, prepping and draping, surgical exposure, perform the technical details of the operation, placing the implants, closure of the incision site and placement of the sterile bandage. I attest to the content of the Intraoperative Record and any orders documented therein. Any exceptions are noted below.
[2023-01-27] MEDS ORDERED: MELATONIN 3 MG TAB PO PRN (15:03)
[2023-01-27] MEDS ORDERED: LORazepam 0.5 MG TAB PO PRN (15:03)
--- NOTE | 2023-01-27 15:11 | Anesthesiology Progress Note ---
Date of Service January 27, 2023 Anesthesia Post Procedure Vital Signs Vital Signs: Temp Pulse Pulse Pulse Resp BP BP 01/27/23 07:35 98.8 F 67 176/80 H 01/27/23 15:04 97.7 F 67 16 164/82 H 01/27/23 14:35 73 18 171/83 H 01/27/23 14:25 72 20 171/84 H 01/27/23 14:44 98.4 F 72 18 146/83 H 01/27/23 14:16 97.9 F 74 22 183/82 H 01/27/23 10:29 98.2 F 76 18 160/78 H 01/27/23 10:29 01/27/23 09:41 01/27/23 07:21 98.8 F 67 18 176/80 H 01/27/23 06:40 97.7 F 89 18 01/27/23 06:32 01/27/23 04:37 66 16 166/86 H 01/27/23 03:49 65 18 171/81 H 01/27/23 03:00 97.7 F 60 16 164/83 H 01/27/23 02:34 58 L Pulse Ox Pulse Ox O2 Del Method O2 Del Method O2 Flow Rate 01/27/23 07:35 96 01/27/23 15:04 92 Room Air 01/27/23 14:35 98 Oxymask 6 01/27/23 14:25 99 Oxymask 6 01/27/23 14:44 96 Room Air 01/27/23 14:16 99 Oxymask 6 01/27/23 10:29 97 Room Air 01/27/23 10:29 97 Room Air 01/27/23 09:41 Room Air 01/27/23 07:21 96 Room Air 01/27/23 06:40 98 Room Air 01/27/23 06:32 Room Air 01/27/23 04:37 94 Room Air 01/27/23 03:49 96 Room Air 01/27/23 03:00 97 Room Air 01/27/23 02:34 Transfer of Care Handoff Completed per policy Notes Mental Status: alert / awake / arousable and participated in evaluation Patient Amnestic to Procedure: Yes Nausea / Vomiting: adequately controlled Pain: adequately controlled Airway Patency, RR, SpO2: stable & adequate BP & HR: stable & adequate Hydration State: stable & adequate Anesthetic Complications: no major complications apparent and Pt Satisfied with anesthetic care
[2023-01-27] MEDS: HYDROmorphone INJ 0.5 MG/0.5 ML SYR IV PRN ×2 (18:05→21:10)
[2023-01-27] MEDS: ASPIRIN 81 MG ECTAB PO SCH (20:38)
[2023-01-27] MEDS: DOCUSATE SODIUM/SENNA 50/8.6MG TAB PO SCH (20:38)
[2023-01-27] MEDS: DOCUSATE SODIUM 100 MG CAP PO SCH (20:39)
[2023-01-27] MEDS: ceFAZolin 1000MG 1,000 MG/7.5 ML SYR IV SCH (21:10)
[2023-01-28] MEDS: HYDROmorphone INJ 0.5 MG/0.5 ML SYR IV PRN ×2 (00:11→08:27)
[2023-01-28] MEDS: ceFAZolin 1000MG 1,000 MG/7.5 ML SYR IV SCH (05:37)
[2023-01-28] MEDS: NSS + 20MEQ KCL 20 MEQ/1,000 ML BAG IV SCH (05:37)
[2023-01-28 07:54] LABS: Basophils # (auto) 0.02 K/uL (0-0.2); Basophils % (auto) 0.3 %; Hemoglobin 9.9 g/dl (12.0-16.0); Immature Granulocytes # (auto) 0.03 K/uL (0.01-0.20); Immature Granulocytes % (auto) 0.4 %; Lymphocytes # (auto) 0.52 K/uL (1.2-3.4); Lymphocytes % (auto) 6.6 %; Mean Corpuscular Hgb Conc 34.1 g/dL (32.0-36.0); Mean Platelet Volume 10.5 fL (9.4-12.4); Monocytes # (auto) 0.86 K/uL (0.11-0.59); Neutrophils # (auto) 6.42 K/uL (1.40-6.50); Neutrophils % (auto) 81.7 %; Platelet Count 211 K/uL (130-400); RDW Coefficient of Variation 14.2 % (11.5-14.5); RDW Standard Deviation 43.9 fL (36.4-46.3); Red Blood Count 3.41 M/uL (4.20-5.40); White Blood Count 7.85 K/ul (4.8-10.8)
[2023-01-28 08:18] LABS: Albumin Globulin Ratio 1.5 (0.9-2); Albumin Level 3.5 gm/dl (3.4-5.0); BUN Creatinine Ratio 28.9 (10-20); Bilirubin,Total 0.5 mg/dl (0.2-1.0); Calcium 8.3 mg/dl (8.6-10.3); Creatinine Clr Calc Pharmacy 80.2 ml/min; Est GFR (African American) 106.6 ml/min; Globulin 2.4 gm/dl (2.5-4.0); Magnesium 2.1 mg/dl (1.7-2.4); Potassium 4.1 mmol/L (3.5-5.1); Total Protein 5.9 gm/dl (6.0-8.3)
[2023-01-28] MEDS: ATORVASTATIN 40 MG TAB PO SCH (08:24)
[2023-01-28] MEDS: CITALOPRAM 20 MG TAB PO SCH (08:24)
[2023-01-28] MEDS: ASPIRIN 81 MG ECTAB PO SCH ×2 (08:24→21:02)
[2023-01-28] MEDS: DOCUSATE SODIUM 100 MG CAP PO SCH ×3 (08:24→21:03)
--- NOTE | 2023-01-28 09:18 | Orthopedic Progress Note ---
Date of Service January 28, 2023 Assessment & Plan (1) Closed intertrochanteric fracture of left hip: S/p IM Nail L Femur (DOS 01/27/2023; Dr. Dia) -WBAT to LLE; OOB w/ assistance; Attempt PT/OT today -DVT prophylaxis with Aspirin 81 mg BID -Post op abx ordered -Pain control per primary team Dispo: Per PT/OT. Anticipate inpatient rehab vs [facility] Discussed w/ Dr. Dia Subjective Pt has been agitated/noncompliant since return from OR. Refusing meds, removed gilliland. Unable to obtain XRs. Review of Systems All systems reviewed & are unremarkable except as noted in HPI & below. Physical Exam General: Elderly female resting in bed. Agitated, confused, oriented to person only. LLE: Dressing C/D/I. Leg lengths equal. Distally NVI. Results & Data Results & Data Laboratory Results Reviewed, Hgb 9.9 from 11.8. Rest of labs unremarkable. Diagnostic Findings Unable to obtain post op XRs d/t pt non-compliance. . PG Care Time/CCT Total # of Minutes Spent Total Time Spent with Patient: Total time spent is greater than 50% in coordination of care (as documented) at patient's floor/unit and/or counseling patient: Coding Level of Care Code 91055 Post Operative Follow-Up Diagnoses Closed intertrochanteric fracture of left hip S72.142A
--- NOTE | 2023-01-28 12:53 | Electrocardiogram Report ---
Test Reason : Blood Pressure : / mmHG Vent. Rate : 071 BPM Atrial Rate : 071 BPM P-R Int : 250 ms QRS Dur : 096 ms QT Int : 422 ms P-R-T Axes : 062 050 053 degrees QTc Int : 458 ms Poor data quality, interpretation may be adversely affected Sinus rhythm with 1st degree A-V block Premature atrial complexes Otherwise normal ECG No previous ECGs available Confirmed by Trav Foreman ([id number]) on 01/28/2023 12:52:41 PM Referred By: [facility] Confirmed By:Trav Foreman
[2023-01-28] MEDS ORDERED: LORazepam 0.5 MG TAB PO PRN (14:44)
[2023-01-28] MEDS ORDERED: ACETAMINOPHEN 1,000 MG/100 ML VIAL IV PRN (14:48)
--- NOTE | 2023-01-28 14:52 | Hospitalist Progress Note ---
Date of Service January 28, 2023 Assessment & Plan (1) Closed left hip fracture: Plan: Acute/stable - S/P IM nail L femur by Dr. Dia on 01/27/23 - WBAT to LLE per orthopedics documentation - DVT ppx for minimum of 30-35 days --> currently utilizing ASA 81mg BID - Would encourage pt to be up out of bed as able, this is likely difficult given her dementia - Also unlikely able to properly use an incentive spirometer - Pain control with 1st like APAP as needed, would avoid narcotics in this patient - Discontinue Dilaudid - Surprisingly, vitamin d level sufficient at 60 - PT/OT evals ordered (2) Dementia: Plan: Chronic/stable - Continue Citalopram, Lorazepam 0.5mg q6h prn anxiety, and Melatonin (3) Benign essential hypertension: Plan: Chronic/stable - BP this morning documented at 168/80 - Her BP meds have been held since surgery, would resume her Amlodipine 10mg daily to start now - Her Benazepril can be resumed tomorrow morning (POD#2) (4) Cerebrovascular disease: Plan: Chronic/stable - Continue ASA (noted increase in frequency for post op DVT ppx) (5) Anemia: Plan: Chronic/stable - Reviewed cbc, hgb 9.9 today, preop was 11.3 - Likely slight drop is post op blood loss as well as some dilutional effect - Monitor Plan Plan as outlined above. Attempt PT/OT. Anticipate she will return to [facility] when cleared by orthopedics. Medically stable. Stop fluids, hydralazine, and Dilaudid. Will resume IV APAP given she was spitting her pills out this AM. Also add Lovenox for DVT ppx while in house. Repeat labs ordered for tomorrow AM. Plan of care to be d/w Dr. Mathew. Admission and Anticipated Discharge Date Admission Date: January 27, 2023 Subjective Patient was seen on daily rounds this morning. She is pleasantly confused, unable to answer any specific questions or provide a reliable ROS. RN notes that she spit out all of her morning meds today. Physical Exam Physical Exam: GENERAL: 82 yo thin frail elderly WF. A&O x1. NAD. LUNGS: Clear to auscultation bilaterally w/o w/r/r. CARDIOVASCULAR: Regular rate and rhythm. 2-3/6 CHIDI noted. ABDOMEN: Soft, non-tender and non-distended. BS normoactive x 4 quad. EXTREMITIES: No edema. Non-tender. L hip incision is dressed, incision well approximated and miguel in tact. No bleeding. No drains present. Results & Data Results & Data Vital Signs (Past 12 Hours) Vital Signs Temp Pulse Resp BP Pulse Ox O2 Del Method 01/28/23 07:53 36.6 C 82 16 168/80 H 94 Room Air Laboratory Results 01/28/23 07:28 01/28/23 07:28 PG Care Time/CCT Total # of Minutes Spent Total Time Spent with Patient: Total time spent is greater than 50% in coordination of care (as documented) at patient's floor/unit and/or counseling patient: Coding Level of Care Code 43851 SUB INP/OBS CARE 2/35MIN Diagnoses Closed left hip fracture S72.002A Dementia F03.90 Benign essential hypertension I10 Cerebrovascular disease I67.9 Anemia D64.9
[2023-01-28] MEDS: amLODIPine BESYLATE 5 MG TAB PO SCH (15:04)
[2023-01-28] MEDS: LORazepam 2 MG/1 ML VIAL IV PRN ×2 (15:23→23:53)
[2023-01-28] MEDS: ENOXAPARIN INJ 40 MG/0.4 ML SYR SQ SCH (15:54)
[2023-01-28] MEDS: DOCUSATE SODIUM/SENNA 50/8.6MG TAB PO SCH (21:03)
[2023-01-29] MEDS ORDERED: LORazepam 2 MG/1 ML VIAL IV STA (00:18)
[2023-01-29] MEDS ORDERED: LORazepam 2 MG/1 ML VIAL IM PRN (05:19)
[2023-01-29 06:26] LABS: Albumin Globulin Ratio 1.5 (0.9-2); Albumin Level 3.5 gm/dl (3.4-5.0); BUN Creatinine Ratio 22.5 (10-20); Bilirubin,Total 0.9 mg/dl (0.2-1.0); Calcium 8.2 mg/dl (8.6-10.3); Creatinine Clr Calc Pharmacy 90.2 ml/min; Est GFR (African American) 110.9 ml/min; Est GFR (Non-African American) 95.6 ml/min; Globulin 2.4 gm/dl (2.5-4.0); Potassium 3.2 mmol/L (3.5-5.1); Total Protein 5.9 gm/dl (6.0-8.3)
[2023-01-29 06:27] LABS: Basophils # (auto) 0.05 K/uL (0-0.2); Basophils % (auto) 0.6 %; Hematocrit (blood only) 27.5 % (37.0-47.0); Hemoglobin 9.3 g/dl (12.0-16.0); Immature Granulocytes # (auto) 0.03 K/uL (0.01-0.20); Immature Granulocytes % (auto) 0.4 %; Lymphocytes # (auto) 0.86 K/uL (1.2-3.4); Lymphocytes % (auto) 11.1 %; Mean Corpuscular Hemoglobin 29.2 pg (25.0-34.0); Mean Corpuscular Hgb Conc 33.8 g/dL (32.0-36.0); Mean Corpuscular Volume 86.5 fL (80.0-100.0); Mean Platelet Volume 10.7 fL (9.4-12.4); Monocytes # (auto) 1.07 K/uL (0.11-0.59); Monocytes % (auto) 13.8 %; Neutrophils # (auto) 5.74 K/uL (1.40-6.50); Neutrophils % (auto) 74.1 %; Platelet Count 185 K/uL (130-400); RDW Coefficient of Variation 13.7 % (11.5-14.5); RDW Standard Deviation 43.8 fL (36.4-46.3); Red Blood Count 3.18 M/uL (4.20-5.40); White Blood Count 7.75 K/ul (4.8-10.8)
[2023-01-29] MEDS ORDERED: OLANZapine 10 MG/2.1 ML SDV IM STA (09:25)
[2023-01-29] MEDS ORDERED: LORazepam 2 MG/1 ML VIAL IM STA (09:50)
[2023-01-29] MEDS: ASPIRIN 81 MG ECTAB PO SCH (09:57)
[2023-01-29] MEDS: amLODIPine BESYLATE 5 MG TAB PO SCH (09:57)
[2023-01-29] MEDS: ATORVASTATIN 40 MG TAB PO SCH (09:58)
[2023-01-29] MEDS: ENOXAPARIN INJ 40 MG/0.4 ML SYR SQ SCH (09:58)
[2023-01-29] MEDS: CITALOPRAM 20 MG TAB PO SCH (09:58)
[2023-01-29] MEDS: DOCUSATE SODIUM 100 MG CAP PO SCH ×2 (09:58→14:17)
[2023-01-29] MEDS ORDERED: POTASSIUM CHLORIDE 20 MEQ/15 ML UDC PO STA (13:24)
--- NOTE | 2023-01-29 13:26 | Discharge Summary ---
Date of Service January 29, 2023 Admission HPI Per Admitting Provider The patient is an 82-year-old female with a past medical history including prediabetes, hypercholesterolemia, lacunar infarct, noncompliance, dysphagia, traumatic brain injury, dementia, benign essential hypertension. She presents to the emergency department with complaint of left hip pain after a fall at her residence at [facility] Principal Diagnosis L hip fracture s/p IM nailing hypokalemia - supplemented Discharge Exam GENERAL: 82 yo thin frail elderly WF. A&O x1. NAD. LUNGS: Clear to auscultation bilaterally w/o w/r/r. CARDIOVASCULAR: Regular rate and rhythm. 2-3/6 CHIDI noted. ABDOMEN: Soft, non-tender and non-distended. BS normoactive x 4 quad. EXTREMITIES: No edema. Non-tender. L hip incision is dressed, incision well approximated and miguel in tact. No bleeding. No drains present. Discharge Data Allergies Allergy/AdvReac Type Severity Reaction Status Date / Time No Known Allergies Allergy Verified 03/12/22 09:42 Consultations 01/27/23 03:47 ED Decision to Admit Stat 01/27/23 06:29 Consult Orthopedic Surgery Routine Procedures Performed Operation Date: 01/27/23 12:00 Actual Procedures p Left Intramedullary Musa Femur(Left) - Zane Dia MD Ordered Studies Femur X-Ray 01/27/23 00:00 FL femur LT 2V CLINICAL HISTORY: Left troch nail COMPARISON STUDY: Left hip 01/27/2023. FLUOROSCOPY TIME: 1 minute and 12 seconds. FLUOROSCOPY IMAGES: 4 Ka,r: 10.6 mGy FINDINGS: Status post internal fixation of a left femoral intertrochanteric fracture within the intramedullary musa and interlocking femoral neck pin. The hardware appears intact. Alignment appears improved. IMPRESSION: Fluoroscopic assistance as above. ACT 112: Negative or not required by law. Electronically signed by: Musa Kwon M.D. 01/27/2023 2:19 PM Hip/Pelvis X-Ray 01/27/23 02:34 XR hip LT 2V w pelvis CLINICAL HISTORY: fall, left hip pain COMPARISON STUDY: None. FINDINGS: Comminuted and displaced intertrochanteric fracture within the proximal left femur. No fracture or dislocation within the pelvis or right hip. IMPRESSION: Left femoral intertrochanteric fracture. No dislocation. ACT 112: Negative or not required by law. Electronically signed by: Musa Kwon M.D. 01/27/2023 7:50 AM Chest X-Ray 01/27/23 03:03 XR chest 1V portable HISTORY: Fall. Hip fx. COMPARISON: None. FINDINGS: No pneumothorax. No pleural effusions. The cardiac silhouette is mildly enlarged. No evidence for pulmonary edema. Mild interstitial thickening which is likely chronic. There are mitral anus calcifications present. No acute fractures identified. IMPRESSION: Mild cardiomegaly. Otherwise, no acute process within the chest. ACT 112: Negative or not required by law. Electronically signed by: Musa Kwon M.D. 01/27/2023 7:[address] 01/27/23 03:44 Exam(s): CT C SPINE EXAM: CT Cervical Spine Without Intravenous Contrast CLINICAL HISTORY: Reason for exam: trauma. TECHNIQUE: Axial computed tomography images of the cervical spine without intravenous contrast. CTDI is 19.12 mGy and DLP is 360.92 mGy-cm. Automated exposure control was utilized for the study. A dose lowering technique was utilized adhering to the principles of ALARA. COMPARISON: No relevant prior studies available. FINDINGS: Vertebrae: Unremarkable. No acute fracture. Discs/spinal canal/neural foramina: Mild degenerative disc disease changes seen in the cervical spine. No spinal canal stenosis. Soft tissues: There is 2.8 cm heterogeneous density nodule seen in the right lobe of the thyroid gland. This can be further assessed on ultrasound study Lung apices: Mild interlobular septal prominence seen in bilateral lungs which can be associated with interstitial edema. Other findings: The bones are osteopenic. IMPRESSION: No acute fracture or dislocation Electronically signed by: Rohan Veliz MD 01/27/23 05:[address] 01/27/23 03:44 Exam(s): CT HEAD Without Contrast EXAM: CT Head Without Intravenous Contrast CLINICAL HISTORY: Reason for exam: trauma. TECHNIQUE: Axial computed tomography images of the head/brain without intravenous contrast. CTDI is 36.81 mGy and DLP is 614.27 mGy-cm. Automated exposure control was utilized for the study. A dose lowering technique was utilized adhering to the principles of ALARA. COMPARISON: No relevant prior studies available. FINDINGS: Brain: Chronic periventricular ischemic demyelination changes seen due to small vessel disease. No hemorrhage. Ventricles: Unremarkable. No ventriculomegaly. Bones/joints: Unremarkable. No acute fracture. Soft tissues: Unremarkable. Sinuses: Mucosal thickening seen in the left maxillary sinus. Mastoid air cells: Unremarkable as visualized. No mastoid effusion. IMPRESSION: No acute intracranial abnormality Electronically signed by: Rohan Veliz MD 01/27/23 05:27 AM Hospital Course (1) Closed left hip fracture: Acute/stable - S/P IM nail L femur by Dr. Dia on 01/27/23 - WBAT to LLE per orthopedics documentation - DVT ppx for minimum of 30-35 days --> currently utilizing ASA 81mg BID - Would encourage pt to be up out of bed as able, this is likely difficult given her dementia - Also unlikely able to properly use an incentive spirometer - Pain control with 1st like APAP as needed, would avoid narcotics in this patient - Discontinued Dilaudid that was ordered on admission - Surprisingly, vitamin d level sufficient at 60 - PT/OT evals ordered - will return back to [facility] in the dementia unit (2) Dementia: Chronic/stable - Continue Citalopram, Lorazepam 0.5mg q6h prn anxiety/agitation, and Melatonin - Pt a little more agitated this AM, reflects sundowning/hospital acquired delirium in dementia pt - Ordered IM Ativan as pt ripped out her IV (3) Benign essential hypertension: Chronic/stable - BP this morning documented at 168/80 - Her BP meds have been held since surgery, her Amlodipine 10mg daily was resumed on 01/28 - Her Benazepril can be resumed upon discharge - Unfortunately, pt spit out her pills this AM so her BP is accelerated (4) Cerebrovascular disease: Chronic/stable - Continue ASA (noted increase in frequency for post op DVT ppx) (5) Anemia: Chronic/stable - Reviewed cbc, hgb 9.6 today and stable, preop was 11.3 - Likely slight drop is post op blood loss as well as some dilutional effect Plan Reviewed labs today, potassium slightly low at 3.2, oral potassium chloride 40meq in liq form ordered but unsure if patient will take it given her agitation. She is medically and hemodynamically stable for discharge back to [facility]. Will need to f/u with orthopedic surgery in 2 weeks. Plan of care has been d/w Dr. Mathew who is in agreement with aforementioned. Total Time Total Time Spent Total Time Spent (In Minutes): >30 minutes Discharge Plan Discharge Items Patient Disposition: Transfer Half-Way Fac Reason For Visit: CLOSED LEFT HIP FRACTURE Discharge Diagnosis: hip fracture Activity: Per Instructions section Activity Comment: May weightbear as tolerated on left leg Weightbearing: Full weightbearing Non-emergency contact: Primary Care Provider and Surgeon Call non-emergency contact if: you have any medication questions Follow-up/Referrals: Zane Dia MD [Physician] - (Orthopedic follow-up 2-3 weeks from surgery date.) Fermín Woodson [Primary Care Provider] - Diet: Regular Addtl Attending Provider Instructions: May fully bear weight as tolerated on left lower extremity Routine wound care to incision site. Place dry dressing and change daily. Take Aspirin 81mg twice a day for prevention of blood clots for total of 6 weeks and then can resume taking it once a day. Use Tylenol as needed for pain. Pending Studies at Discharge: No Stand-Alone Forms: [facility] Skilled Items Patient informed of condition?: No DNR: No Discharge Level of Care: Skilled Communicable Disease: No Discharge Prognosis: Stable Lines: None Urinary Catheter: No Medications and DC Order Prescriptions: Continued benazepril 20 mg tablet 30 mg PO DAILY Qty: 45 2RF amlodipine 10 mg tablet See Rx Instructions .ROUTE .COMPLEX Qty: 90 1RF Dose Instruction: TAKE 1 TABLET BY MOUTH EVERY DAY Rx Instructions: TAKE 1 TABLET BY MOUTH EVERY DAY atorvastatin 40 mg Tablet 40 mg PO DAILY citalopram 10 mg Tablet 10 mg PO DAILY melatonin 3 mg Tablet 3 mg PO HS PRN (Reason: Sleep) lorazepam 0.5 mg Tablet 0.5 mg PO BID PRN (Reason: Anxiety) docusate sodium [Colace] 100 mg Capsule 100 mg PO TID Changed aspirin 81 mg tablet,delayed release (DR/EC) 81 mg PO BID 42 Days Qty: 0 0RF Discharge Orders: Discharge Order (Routine); Ordered 01/29/23 Ordered By: Melly Shipley Admission Data Admit Date/Time: 01/27/23 04:13 Attending Provider: Flaquito Mathew Admit Provider: Micah Matos Primary Care Provider: Fermín Woodson Other Providers: Micah Matos ; Zane Dia Coding Level of Care Code 70542 INP/OBS DISCH >30 MIN Diagnoses Closed left hip fracture S72.002A Dementia F03.90 Benign essential hypertension I10 Cerebrovascular disease I67.9 Anemia D64.9
--- NOTE | 2023-01-29 15:20 | Progress Notes ---
DATE OF SERVICE: 01/29/2023 SUBJECTIVE: An 82-year-old female postoperative day 2 from IM nailing of the left intertrochanteric fracture. The patient is significantly demented. She was pretty agitated earlier today, so they gav e her some Ativan and she is significantly sedated at this point. She is resting comfortably in bed, but difficult to elicit any responses from. OBJECTIVE: VITAL SIGNS: Temperature is 36.4. Vital signs are stable. PHYSICAL EXAMINATION: GENERAL: Physical examinations shows a frail, elderly female. She is lying in bed and looks to be s leeping. She looks comfortable. EXTREMITIES: Examination of the left hip and leg reveals the dressing is clean, dry, and intact. Le g lengths are equal. She has got brisk refill. Motor exam was deferred due to her sedation. LABORATORY DATA: Hemoglobin 9.3. Hematocrit 27.5. Electrolytes are fairly stable. Potassium is a little bit low at 3.2. ASSESSMENT: An 82-year-old female postoperative day 2 from IM nailing of the left intertrochanteric fracture, doing okay. She has got significant dementia. Her leg looks good. Wounds look to be heal ing and stable. Potassium is a little low and that can be supplemented by the medicine service. She is anemic, but asymptomatic. PLAN: 1. DVT prophylaxis to include thigh-high TEDs, SCDs and we would recommend a baby aspirin twice a da y for 6 weeks. 2. PT/OT. She can fully weightbear as tolerated on her left leg 3. Medical management as per the medicine service. 4. Disposition: She is orthopedically okay for discharge any time medically stable. I need to see her back in 2 to 3 weeks out from surgery date. Any orthopedic questions can be directed to me at . Job ID: [id number]
[2023-01-29] MEDS ORDERED: POLYETHYLENE (MIRALAX) 17 GM PACK PO SCH (18:00)
== END 2023-01-29 15:16 | DRG 481 ==
LOC: ED 02:13 → SUATTDRO 04:13 → 3E 04:13